=== PATIENT | female | born 1940 | race Caucasian/White ===

== ENCOUNTER 2020-12-20 20:49 | Emergency (ER) | payer MEDICARE, BC ==
--- NOTE | 2020-12-20 22:20 | EDM.PDOC ---
ED HPI GENERAL MEDICAL PROBLEM - General Chief Complaint: Abdominal Pain Stated Complaint: THROWING UP, PAIN IN STOMACH Time Seen by Provider: 12/20/20 22:10 Source of Information: Reports: Patient History Limitations: Reports: No Limitations - History of Present Illness INITIAL COMMENTS - FREE TEXT/NARRATIVE: This 80 yo female patient reports to the ED due to back pain and upper abdominal pain. The patient also reports she vomited several times this evening. The patient reports the vomiting started after she ate a piece of side pork. The patient reports her vomit was a dark color. The patient reports she has been having the upper back pain for about 1 month after having stents placed in her kidneys. The patient denies any current chest pain or shortness of breath. Onset: Today Duration: Hour(s): Location: Reports: Abdomen, Back Quality: Reports: Ache Severity: Moderate Improves with: Reports: None Worsens with: Reports: None Context: Reports: Other Associated Symptoms: Reports: Nausea/Vomiting Upper Abdomen Pain Score (Numeric/FACES): 7 - Related Data Allergies Allergy/AdvReac Type Severity Reaction Status Date / Time No Known Allergies Allergy Verified 12/20/20 21:50 Home Meds: Home Meds Aspirin [Aspirin EC] 160 mg PO DAILY 12/20/20 [History] NIFEdipine [Nifedipine ER] 30 mg PO DAILY 12/20/20 [History] Simvastatin 40 mg PO DAILY 12/20/20 [History] Past Medical History HEENT History: Reports: Cataract, Impaired Vision Cardiovascular History: Reports: Heart Murmur, Hypertension, Stents Genitourinary History: Reports: Renal Calculus, UTI, Recurrent, Other (See Below) Other Genitourinary History: Had 2 stents placed about 1 month ago. 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 ED EXAM, GI/ABD - Physical Exam Exam: See Below Exam Limited By: No Limitations General Appearance: Alert, WD/WN, Moderate Distress Eyes: Bilateral: Normal Appearance, EOMI Ears: Normal External Exam, Normal Canal, Hearing Grossly Normal, Normal TMs Nose: Normal Inspection, Normal Mucosa, No Blood Throat/Mouth: Normal Inspection, Normal Lips, Normal Teeth, Normal Gums, Normal Oropharynx, Normal Voice, No Airway Compromise Head: Atraumatic, Normocephalic Neck: Normal Inspection, Supple, Non-Tender, Full Range of Motion Respiratory/Chest: No Respiratory Distress, Lungs Clear, Normal Breath Sounds, No Accessory Muscle Use, Chest Non-Tender Cardiovascular: Normal Peripheral Pulses, Regular Rate, Rhythm, No Edema, No Gallop, No JVD, No Murmur, No Rub GI/Abdominal Exam: Tender (upper abdominal tenderness ) (Female) Exam: Deferred Rectal (Female) Exam: Deferred Back Exam: CVA Tenderness (L), CVA Tenderness (R) Extremities: Normal Inspection, Normal Range of Motion, Non-Tender, Normal Capillary Refill, No Pedal Edema Neurological: Alert, Oriented, CN II-XII Intact, Normal Cognition, Normal Gait, Normal Reflexes, No Motor/Sensory Deficits Psychiatric: Normal Affect, Normal Mood Skin Exam: Warm, Dry, Intact, Normal Color, No Rash Lymphatic: No Adenopathy Course - Vital Signs Last Recorded V/S: Last Vital Signs Temp 97.6 F 12/20/20 21:40 Pulse 77 12/20/20 22:41 Resp 12 12/20/20 22:41 BP 187/86 H 12/20/20 22:41 Pulse Ox 98 12/20/20 22:41 - Orders/Labs/Meds Orders: Active Orders 24 hr Category Date Time Status Gastric Occult/pH Collection D [RC] ASDIRECTED Care 12/20/20 22:05 Active CULTURE URINE [RM] Urgent Lab 12/20/20 22:14 Received INR,PT,PROTHROMBIN TIME [COAG] Stat Lab 12/20/20 22:55 Ordered LACTATE SEPSIS W/ REFLEX [CHEM] Stat Lab 12/20/20 22:55 Ordered Labs: Laboratory Tests 12/20/20 12/20/20 12/20/20 Range/Units 22:00 22:14 22:20 WBC 9.6 (5.0-10.0) 10^3/uL RBC 3.26 L (4.2-5.4) 10^6/uL Hgb 9.5 L (12.0-16.0) g/dL Hct 29.6 L (37.0-47.0) % MCV 90.8 (80-100) fL MCH 29.1 (27.0-34.0) pg MCHC 32.1 L (33.0-35.0) g/dL Plt Count 230 (150-450) 10^3/uL Neut % (Auto) 76.1 H (42.2-75.2) % Lymph % (Auto) 15.1 L (20.5-50.1) % Winston % (Auto) 8.2 H (2-8) % Eos % (Auto) 0.5 L (1.0-3.0) % Baso % (Auto) 0.1 (0.0-1.0) % Sodium 138 (136-145) mmol/L Potassium 4.1 (3.5-5.1) mmol/L Chloride 103 (98-107) mmol/L Carbon Dioxide 25 (21-32) mmol/L Anion Gap 14.1 H (7-13) mEq/L BUN 25 H (7-18) mg/dL Creatinine 1.82 H (0.55-1.02) mg/dL Est Cr Clr Drug Dosing 17.98 mL/min Estimated GFR (MDRD) 27 BUN/Creatinine Ratio 13.7 (No establ ref range) Glucose 124 H (70-99) mg/dL Calcium 8.6 (8.5-10.1) mg/dL Total Bilirubin 0.3 (0.2-1.0) mg/dL AST 17 (15-37) U/L ALT 19 (14-59) U/L Alkaline Phosphatase 96 (46-116) U/L Total Protein 6.7 (6.4-8.2) g/dL Albumin 3.6 (3.4-5.0) g/dL Globulin 3.1 Albumin/Globulin Ratio 1.2 Amylase 91 (25-115) U/L Lipase 524 H (73-393) U/L Urine Color Yellow (YELLOW) Urine Appearance Slightly cloudy (CLEAR) Urine pH 7.0 (5.0-9.0) Ur Specific Stanley 1.025 (1.005-1.030) Urine Protein Trace H (NEGATIVE) Urine Glucose (UA) Negative (NEGATIVE) Urine Ketones Trace H (NEGATIVE) Urine Occult Blood Trace-intact H (NEGATIVE) Urine Nitrite Negative (NEGATIVE) Urine Bilirubin Negative (NEGATIVE) Urine Urobilinogen 0.2 (0.2-1.0) mg/dL Ur Leukocyte Esterase Large H (NEGATIVE) Urine RBC 0-5 /HPF Urine WBC 40-50 H (0-5/HPF) /HPF Ur Epithelial Cells Moderate H (NOT SEEN) /HPF Urine Bacteria Many H (0-FEW/HPF) /HPF Meds: Medications Discontinued Medications Generic Name Dose Route Start Last Admin Trade Name Freq PRN Reason Stop Dose Admin Ondansetron HCl 4 mg 12/20/20 22:47 12/20/20 22:55 Ondansetron 4 Mg/2 Ml Sdv IVPUSH 12/20/20 22:48 4 mg ONETIME ONE Administration Pantoprazole Sodium 40 mg 12/20/20 22:52 12/20/20 22:57 Pantoprazole 40 Mg Vial IVPUSH 12/20/20 22:53 40 mg ONETIME ONE Administration Departure - Departure Time of Disposition: 22:59 Disposition: DC/Tfer to Acute Hospital 02 Condition: Fair Clinical Impression: Upper GI bleed - Discharge Information *PRESCRIPTION DRUG MONITORING PROGRAM REVIEWED*: Not Applicable *COPY OF PRESCRIPTION DRUG MONITORING REPORT IN PATIENT NADER: Not Applicable Forms: Interfacility Transfer EMTALA Care Plan Goals: Discussed the patient's history, examination, lab results and treatments with Dr. Vaughan. Dr. Vaughan accepted the patient for continued evaluation and management as an inpatient at [facility] in [place]. The patient will be transported by [facility]. Sepsis Event Note (ED) - Evaluation Sepsis Screening Result: No Definite Risk - Focused Exam Vital Signs: Vital Signs Temp Pulse Resp BP Pulse Ox 12/20/20 22:41 77 12 187/86 H 98 12/20/20 22:11 81 16 176/63 H 100 12/20/20 21:40 97.6 F 80 16 180/66 H 100 - My Orders Last 24 Hours: My Active Orders 12/20/20 22:05 Gastric Occult/pH Collection D [RC] ASDIRECTED 12/20/20 22:14 CULTURE URINE [RM] Urgent 12/20/20 22:55 INR,PT,PROTHROMBIN TIME [COAG] Stat LACTATE SEPSIS W/ REFLEX [CHEM] Stat - Assessment/Plan Last 24 Hours: My Active Orders 12/20/20 22:05 Gastric Occult/pH Collection D [RC] ASDIRECTED 12/20/20 22:14 CULTURE URINE [RM] Urgent 12/20/20 22:55 INR,PT,PROTHROMBIN TIME [COAG] Stat LACTATE SEPSIS W/ REFLEX [CHEM] Stat
[2020-12-20 22:41] LABS: ANION GAP 14.1 mEq/L (7-13)
[2020-12-20] MEDS ORDERED: Ondansetron 4 MG/2 ML SDV IVPUSH ONE (22:47)
[2020-12-20] MEDS ORDERED: Pantoprazole 40 MG Vial IVPUSH ONE (22:52)
== END 2020-12-20 23:30 ==
LOC: DL.ED 20:49
DX: K92.2 Gastrointestinal hemorrhage, unspecified (principal); I10 Essential (primary) hypertension; Z79.2 Long term (current) use of antibiotics
CPT/HCPCS: 36415; 80053; 81001; 82150; 82271; 83605; 83690; 85025; 85610; 87086; 96374; 96375; 99284; 99285-25; C9113; J2405

== ENCOUNTER 2021-05-16 06:31 | Day surgery (SDC) | payer MEDICARE, BC ==
[2021-05-16] MEDS ORDERED: Midazolam 1 MG/ML 2 ML SDV IV ONE ×2 (06:32→07:34)
[2021-05-16] MEDS ORDERED: fentaNYL 100 MCG/2 ML SDV IV ONE ×3 (06:32→07:36)
[2021-05-16] MEDS ORDERED: Midazolam 1 MG/ML 2 ML SDV ONE (06:40)
[2021-05-16] MEDS ORDERED: fentaNYL 100 MCG/2 ML SDV ONE (06:40)
[2021-05-16] MEDS ORDERED: Dextrose 5%-0.45% NaCl 1,000 ML IV SCH (06:45)
[2021-05-16] MEDS ORDERED: Sodium Chloride 0.9% 10 ML Syringe FLUSH PRN (06:46)
--- NOTE | 2021-05-16 14:04 | OR ---
DATE: 05/16/2021 PROCEDURES: Esophagogastroduodenoscopy and multiple pinch biopsies. INSTRUMENT USED: GIF-HQ190 Olympus video panendoscope. PREMEDICATIONS: No oral or topical anesthesia used. Fentanyl 75 mcg intravenous, Versed 1 mg intravenous. Nasal O2 cannula. The procedure was done under pulse oximetry, BP recording, and school lunch monitor. INDICATIONS: The patient with persistent abdominal pain, vomiting, and progressive weight loss unexplained and not responsive to medical measures. Had previous Ryan's ulcers treated with PPI. Esophagogastroduodenoscopy is performed for detection of any active erosive lesions, malignancy also under consideration, H. pylori status to be determined, and endoscopic hemostasis therapy if needed. PROCEDURE IN DETAIL: The scope was passed with ease. Adequate visualization of the esophagus was made from proximal to distal areas. No upper esophageal lesions identified. No distal esophageal stricture. No uphill or downhill esophageal varices. No Joanna-Monzon tear. No evidence of erosive esophagitis by [place] criteria. No esophageal polyp or tumor mass identified. Large sliding hiatal hernia was noted. No proximal gastric varices noted. Gastric fundus examination by retroflexion showed no polypoid lesions. No gastric ulcer, malignant mass, or vascular ectasia identified. Duodenal bulb showed no ulcer. Visualized second part of the duodenum was unremarkable. Multiple pinch biopsies were taken from the gastric antrum and proximal body and sent for PyloriTek test for H. pylori, and if negative in an hour, the tissue is to be sent for histopathology. No bleeding was noted from any of the visualized areas at the completion of examination. Photographs were taken of the duodenal bulb, gastric antrum, fundus, and distal esophagus. IMPRESSION: Sliding hiatal hernia. The patient tolerated the procedure well. [facility] /[id number]
--- NOTE | 2021-05-16 14:40 | LETTER ---
05/16/2021 RE: ANGELIQUE OWUSU : 1940 Andrea Grewal MD [facility] [address] [place], [place] [address] Grewal: Ms. Angelique Owusu had esophagogastroduodenoscopy done this morning, and she tolerated the procedure well. I herewith send a copy of the endoscopy note and photographs for your review. Thank you. Sincerely, [facility] /[id number]
== END 2021-05-16 09:48 | disposition home or self-care (01) ==
LOC: DL.ENDO 06:31
PROVIDERS: ATTEND Internal Medicine Gastroenterology
DX: K44.9 Diaphragmatic hernia without obstruction or gangrene (principal); E78.5 Hyperlipidemia, unspecified; D64.9 Anemia, unspecified; E53.8 Deficiency of other specified B group vitamins; I25.10 Atherosclerotic heart disease of native coronary artery without angina pectoris; N18.9 Chronic kidney disease, unspecified; Z98.890 Other specified postprocedural states; Z01.812 Encounter for preprocedural laboratory examination; Z20.822 Contact with and (suspected) exposure to COVID-19
CPT/HCPCS: 43239; 87077; J2250; J3010; J7042; U0002